=== PATIENT | male | born 1985 | race Caucasian/White ===

== ENCOUNTER 2022-11-11 20:23 | Emergency (ER) | payer MEDICARE, SELFPAY ==
[2022-11-11 20:30] VITALS: BP 149/80; PULSE 80; O2SAT 98
[2022-11-11 20:33] VITALS: BP 153/74; PULSE 83; RESP 20; TEMP 37.2; O2SAT 98; BMI 37.5
[2022-11-11 21:05] LABS: Basophils # 0.1 K/mm3 (0-0.2); Basophils % 0.8 % (0.1-2.0); Eosinophils # 0.1 K/mm3 (0.0-0.4); Eosinophils % 1.5 % (0.1-12.0); Hematocrit 42.6 % (42.0-52.0); Hemoglobin 14.1 g/dL (14.1-18.0); Lymphocytes # 2.2 K/mm3 (0.7-4.5); Lymphocytes % 28.3 % (10-50); Mean Corpuscular HGB Conc 33.1 g/dL (31.8-35.4); Mean Corpuscular Hemoglobin 29.5 pg (27.0-31.2); Mean Corpuscular Volume 89.2 fl (80-94); Monocytes # 0.3 K/mm3 (0.1-1.0); Neutrophils # 5.1 K/mm3 (1.8-7.8); Neutrophils % 65.3 % (37.0-80.0); Platelet Count 214 K/mm3 (142-424); Red Blood Count 4.78 M/mm3 (4.60-6.20); Red Cell Distribution Width 14.4 % (11.5-17.5); White Blood Count 7.8 K/mm3 (4.8-10.8)
[2022-11-11 21:07] LABS: Chloride 101 mmol/L (98-107); Potassium 3.3 mmoL/L (3.5-5.1); Sodium 137 mmol/L (136-145)
[2022-11-11 21:10] LABS: Alanine Aminotransferase 75 U/L (12-78); Albumin Level 4.5 g/dl (3.5-5.0); Albumin/Globulin Ratio 1.6 (1.1-1.8); Alkaline Phosphatase 39 U/L (38-126); Anion Gap 11.3 mEq/L (5-15); Aspartate Amino Transferase 49 U/L (17-59); Bilirubin,Total 0.3 mg/dl (0.2-1.3); Blood Urea Nitrogen 11 mg/dl (9-20); Carbon Dioxide 28 mmol/L (22.0-30.0); Creatinine Clearance Estimated 197 mL/min (50-200); Estimated Glomerular Filt Rate 109 ml/min (>60); GFR (African American) 132 ML/MIN (>60); Globulin 2.8 g/dL (1.3-3.2); Glucose 188 mg/dl (74-100); Total Protein,Serum 7.3 g/dl (6.3-8.2)
--- NOTE | 2022-11-11 21:31 | HMH.EDALLER ---
Discharge Plan Disposition Patient Disposition: Home, Self-Care Prescriptions Prescriptions: New prednisone [prednisone] 20 mg tablet 20 mg PO BID Qty: 10 0RF loratadine [Claritin] 10 mg tablet 10 mg PO DAILY Qty: 10 0RF Referrals Follow up/Referrals: Provider,Referral, MD [Primary Care Provider] - See instructions Clinical Impressions Clinical Impression: Allergic reaction, Bee sting reaction Instructions Patient Instructions: DI for General Allergic Reactions Discharge ED Provider: Christian (ED)Yo Allergic React/Insect Bite HPI General Chief complaint: Allergic Reaction Stated complaint: AO 11/11@1830 stung by bee Time Seen by Provider: 11/11/22 21:31 Mode of Arrival - ED Triage: Ambulatory Source of Information: Patient and Medical Record Limitations: No Limitations History of Present Illness HPI narrative: pt with bee sting tonight to multiple areas and has rt eyelid swelling and felt throat was closing - no wheezing MD complaint: allergic reaction and facial swelling Onset (ago): hour(s) Exposure: insect bite Symptoms: itching and facial swelling Allergies Allergy/AdvReac Type Severity Reaction Status Date / Time doxycycline Allergy Verified 11/11/22 20:48 Penicillins Allergy Verified 11/11/22 20:48 Previous Allergic Reaction History: none Severity: moderate Related Data Previous Rx's Medication Instructions Recorded loratadine 10 mg tablet (Claritin) 10 mg PO DAILY #10 tabs 11/11/22 prednisone 20 mg tablet 20 mg PO BID #10 tabs 11/11/22 [facility] Disclaimer: The information contained in this section may have been updated after the patient was seen, as this information can be updated by other users. Social History Smoking Status: Current every day smoker alcohol intake: never current occupational status: employed Travel in the last 8 weeks: None ROS Obtained: Yes All systems reviewed & no additional complaints except as documented Physical Exam General General appearance: alert Head Head exam: normocephalic Eye Eye exam: Present PERRL, EOMI and other (rt eyelid swollen ) ENT ENT exam: Present normal oropharynx Neck Neck exam: Present trachea midline Respiratory Respiratory exam: Present normal lung sounds bilaterally; Absent respiratory distress Cardiovascular Cardiovascular exam: Present regular rate Abdominal Exam Abdominal exam: Present soft Extremities Exam Extremities exam: Present full ROM Neurological Exam Neurological exam: Present alert, oriented X3 and CN II-XII intact; Absent motor sensory deficit Psychiatric Psychiatric exam: Present normal affect Skin Skin exam: Absent rash Medical Decision Making Medical Records Medical records reviewed: Yes I reviewed the patient's medical records. Santhosh Inquiry Pt receiving controlled substance: No Vital Signs: 11/11/22 20:33 11/11/22 20:30 Temperature 99 F Temperature Source Oral Pulse Rate 80 Pulse Rate [Right] 83 Respiratory Rate 20 Blood Pressure 149/80 H Blood Pressure [Right Arm] 153/74 H Blood Pressure Mean [Right Arm] 100 Blood Pressure Position [Right Arm] Sitting 02 Sat by Pulse Oximetry 98 98 Oxygen Delivery Method Room Air Room Air Lab Data Lab results reviewed: Yes I reviewed the patient's lab results. Lab Results 11/11/22 20:45: WBC 7.8, RBC 4.78, Hgb 14.1, Hct 42.6, MCV 89.2, MCH 29.5, MCHC 33.1, RDW 14.4, Plt Count 214, MPV 8.0, Neut % (Auto) 65.3, Lymph % (Auto) 28.3, Luna % (Auto) 4.0, Eos % (Auto) 1.5, Baso % (Auto) 0.8, Neut # (Auto) 5.1, Lymph # (Auto) 2.2, Luna # (Auto) 0.3, Eos # (Auto) 0.1, Baso # (Auto) 0.1 11/11/22 20:45: Sodium 137, Potassium 3.3 L, Chloride 101, Carbon Dioxide 28, Anion Gap 11.3, BUN 11, Creatinine 0.80, Estimated Creat Clear 197, Estimated GFR 109, Est GFR ( Amer) 132, Glucose 188 H, Calcium 9.0, Total Bilirubin 0.3, AST 49, ALT 75, Alkaline Phosphatase 39, Total Protein 7.3, Albumin 4.5, Globulin 2.8, Albumin/
--- NOTE | 2022-11-11 21:57 | PC.NURSE ---
Dr. Gonzales at BS to update pt
[2022-11-11 21:58] VITALS: BP 127/71; PULSE 73; RESP 17; TEMP 36.7; O2SAT 98
[2022-11-11 22:02] VITALS: BP 121/70; PULSE 72; RESP 18; TEMP 36.6; O2SAT 98
== END 2022-11-11 22:08 | disposition home or self-care (01) ==
PROVIDERS: Emergency Provider Emergency Medicine
DX: T63.441A Toxic effect of venom of bees, accidental (unintentional), initial encounter (principal); F17.210 Nicotine dependence, cigarettes, uncomplicated
CPT/HCPCS: 80053; 85025; 96361; 96374; 96375; 99284

== ENCOUNTER 2024-09-27 22:44 | Emergency (ER) | payer MEDICARE, SELFPAY ==
[2024-09-27 22:44] VITALS: BP 161/89; PULSE 66; RESP 16; TEMP 36.7; O2SAT 98; BMI 37.0
[2024-09-28] MEDS: METHOCARBAMOL 500MG TABLET 500 MG PO (00:35)
[2024-09-28] MEDS: ACETAMINOPHEN 500MG TAB 1000 MG PO (00:35)
[2024-09-28] MEDS: IBUPROFEN 800 MG TABLET PO (00:35)
--- NOTE | 2024-09-28 00:35 | ED_ITS ---
Discharge Plan Disposition Patient Disposition: Home, Self-Care Condition: Good Prescriptions Prescriptions: New acetaminophen 500 mg capsule 500 mg PO Q6H PRN (Reason: pain) Qty: 30 0RF ibuprofen 800 mg tablet 800 mg PO Q8H PRN (Reason: pain) Qty: 20 0RF No Action prednisone [prednisone] 20 mg tablet 20 mg PO BID Qty: 10 0RF loratadine [Claritin] 10 mg tablet 10 mg PO DAILY Qty: 10 0RF Referrals Follow up/Referrals: Terrell Mcallister MD [Staff Physician] - See instructions (chronic midback pain) Aylin Alvarado APRN [Primary Care Provider] - See instructions Activity Restrictions/Add. Instructions Additional Instructions/Restrictions: You were evaluated in the ER. Take the prescribed Tylenol, ibuprofen if needed for pain, take these medications as prescribed. Drink water and eat a small snack each time you take these medications to avoid side effects. Follow-up with Dr. Mcallister with the pain clinic. Return to the ER with new, worsening, or otherwise concerning symptoms. Clinical Impressions Clinical Impression: Acute on chronic back pain Print Language Print Language: Panamanian Discharge ED Provider: Cyndy Merritt General Adult HPI General Chief complaint: PAIN Stated complaint: back pain Time Seen by Provider: 09/28/24 00:13 Mode of Arrival: Ambulatory Source of Information: Patient Limitations: No Limitations Description of Symptoms (Recalled from ER Triage Doc. by RN): Pt presents to ED for chronic back pain. Pt states he [facility] and [facility]. Pt is A&O*4 and rates pain 8. History of Present Illness HPI narrative: 39-year-old male presents to the ER for exacerbation of chronic back pain. Patient reports he was injured in the and [facility] last few years but they have reportedly not been helpful with his treatment. He reports inappropriate interactions with chiropractor as recently so he is trying to see different providers to see if he can get established with someone who will actually take care of his pain. Patient reports he typically takes ibuprofen but is currently out of ibuprofen 800 mg so he took Aleve earlier today. He has not taken any other medications for his pain. He states he has chronic pain but in the last 3 days it has been exacerbated worse than normal. He denies weakness or paralysis, he is not having bowel or bladder incontinence, no saddle anesthesia. Patient reports no falls or other injuries, no recent trauma. No headache or dizziness, no cough or chest pain, no difficulty breathing, no nausea, vomiting, or or diarrhea. Related Data Previous Rx's ?Medication ?Instructions ?Recorded loratadine 10 mg tablet (Claritin) 10 mg PO DAILY #10 tabs 11/11/22 prednisone 20 mg tablet 20 mg PO BID #10 tabs 11/11/22 acetaminophen 500 mg capsule 500 mg PO Q6H PRN pain #30 caps 09/28/24 ibuprofen 800 mg tablet 800 mg PO Q8H PRN pain #20 tabs 09/28/24 Allergies Allergy/AdvReac Type Severity Reaction Status Date / Time doxycycline Allergy Verified 11/11/22 20:48 Penicillins Allergy Verified 11/11/22 20:48 PFSH PFS Disclaimer: The information contained in this section may have been updated after the patient was seen, as this information can be updated by other users. Social History (Updated 11/11/22 @ 21:50 by Yo Gonzales (JASON)MD) Smoking Status: Current every day smoker alcohol intake: never current occupational status: employed Travel in the last 8 weeks: None ROS Obtained: Yes Systems reviewed as appropriate & no additional complaints except as documented Per HPI Physical Exam General General appearance: alert and in no apparent distress Head Head exam: atraumatic and normocephalic Eye Eye exam: Present PERRL and EOMI ENT ENT exam: Present mucous membranes moist Neck Neck exam: Present normal inspection and full ROM Chest Chest inspection: Present symmetric chest wall rise Respiratory Respiratory exam: Present normal lung sounds bilaterally; Absent respiratory distress, wheezes or stridor Cardiovascular Cardiovascular exam: Present regular rate and normal rhythm Abdominal Exam Abdominal exam: Present soft; Absent distention or tenderness Extremities Exam Extremities exam: Present full ROM and normal capillary refill; Absent edema or joint swelling Back Exam Back exam: Present full ROM and tenderness (Mild tenderness of the mid back without deformity or step-off, no radiation of pain); Absent CVA tenderness (R), CVA tenderness (L), sciatic notch tenderness (R) or sciatic notch tenderness (L) Neurological Exam Neurological exam: Present alert, oriented X3, normal gait (Independently ambulatory into the ER) and other (,No saddle anesthesia 5/5 strength in all extremities, sensation intact throughout); Absent motor sensory deficit Psychiatric Psychiatric exam: Present normal affect and normal mood Skin Skin exam: Present warm and dry Medical Decision Making Medical Records Medical records reviewed: Yes I reviewed the patient's medical records. Screening: Per USPSTF and CDC recommendations, given the prevalence of disease in our region, it is our hospital?s policy to screen for HIV and viral Hepatitis for all patients aged 18 and over and those with ongoing risk factors. MR Comment: Patient only has 1 prior encounter within our system, he was evaluated in 2022 with multiple bee stings. Patient was prescribed prednisone and loratadine at that time. Santhosh Inquiry Pt receiving controlled substance: No Vital Signs: 09/27/24 22:44 09/28/24 00:50 Temperature 98.0 F 98.0 F Temperature Source Oral Oral Pulse Rate 66 Pulse Rate [Left] 66 Respiratory Rate 16 16 Blood Pressure 161/89 H Blood Pressure [Right Arm] 161/89 H Blood Pressure Mean [Right Arm] 113 02 Sat by Pulse Oximetry 98 Oxygen Delivery Method Room Air Room Air Orders (Tests/Meds): ED MEDICATIONS Discontinued Medications Generic Name Dose Route Start Last Admin Trade Name Freq PRN Reason Stop Dose Admin Acetaminophen 1,000 mg 09/28/24 00:14 09/28/24 00:35 Acetaminophen 500mg Tab PO 09/28/24 00:15 1,000 mg ONCE ONE Administration Ibuprofen 800 mg 09/28/24 00:16 09/28/24 00:35 Ibuprofen 800 Mg Tablet PO 09/28/24 00:17 800 mg ONCE ONE Administration Lidocaine 1 each 09/28/24 00:17 09/28/24 00:39 Lidocaine 5% Transdermal Patch TP 09/28/24 00:18 Not Given ONCE ONE Methocarbamol 500 mg 09/28/24 00:16 09/28/24 00:35 Methocarbamol 500mg Tablet PO 09/28/24 00:17 500 mg ONCE ONE Administration ORDERS Category Date Time Status CT lumbar spine wo con Stat Cat Scan 09/28/24 00:[address] thoracic spine wo con Stat Cat Scan 09/28/24 00:14 Ordered Medical Decision Narrative: In summary, this 39-year-old male with comorbidities described in the HPI presents to the emergency department today with exacerbation of chronic back pain. On initial evaluation patient is hemodynamically stable, afebrile, independently ambulatory into the ER, GCS 15, no neurologic deficits, full strength throughout, no saddle anesthesia, no red flag symptoms. Differential diagnosis includes but is not limited to arthritis, compression fracture, acute on chronic pain, muscle spasm, radiculopathy. Patient has no prior imaging within our system and does have mid back tenderness so CT imaging was ordered. I also ordered Tylenol, ibuprofen, methocarbamol, lidocaine patch for treatment of patient's pain. He refused lidocaine patch stating it will not do anything. This does increase my suspicion/concern for possible secondary gain goals. After my evaluation and receiving initial medications in the ER, patient was resting very comfortably and moving around very freely, taking his jacket on and off, ambulating independently through the ER. He refused the bladder scan as well as the CT despite my recommendations. I have very low concern for acute dangerous or life-threatening pathology given patient's explanation of nontraumatic exacerbation of acute on chronic back pain. Patient requested a referral and to be discharged. At this time I believe this is reasonable. I referred him to pain management for reevaluation and prescribed Tylenol, ibuprofen since patient requested these. I explained to the patient there is a possibility of missing an injury or abnormality with him refusing the studies which she understands. I believe they will likely be low yield since this is an exacerbation of his chronic pain and he has not had a recent injury. Patient was given instructions on symptomatic management, follow up instructions, and return precautions for the emergency department. Patient indicated understanding and was discharged in stable condition. Critical Care Critical Care Time Critical Care Time: No
[2024-09-28 00:50] VITALS: BP 161/89; PULSE 66; RESP 16; TEMP 36.7; O2SAT 98
--- NOTE | 2024-09-28 01:06 | PC.NURSE ---
Pt approached the nurses station and I assisted him. He stated he doesn't want all the scans and stuff. He just wanted medicine and referral. I discussed this with Dr. Merritt and pt was discharged. [id number]
== END 2024-09-28 00:58 | disposition home or self-care (01) ==
PROVIDERS: Emergency Provider Emergency Medicine; PCP Nurse Practitioner Family
DX: M54.9 Dorsalgia, unspecified (principal); G89.29 Other chronic pain
CPT/HCPCS: 99283